=== PATIENT | female | born 1960 | race Caucasian/White ===

== ENCOUNTER 2022-09-08 21:10 | Emergency (ER) | payer OTHER ==
[2022-09-08 21:22] VITALS: BP 171/69
== END 2022-09-08 21:35 | disposition left against medical advice (07) ==
LOC: ED 21:10
DX: Z53.21 Procedure and treatment not carried out due to patient leaving prior to being seen by health care provider (principal)

== ENCOUNTER 2024-05-18 01:01 | Emergency (ER) | payer OTHER ==
[2024-05-18 01:36] LABS: BASOPHILS # (AUTO) 0.1 10^3/uL (0.0-0.1); BASOPHILS % (AUTO) 0.8 %; EOSINOPHILS # (AUTO) 0.3 10^3/uL (0.0-0.7); EOSINOPHILS % (AUTO) 3.4 %; HCT - HEMATOCRIT 40.9 % (37.0-47.0); HGB - HEMOGLOBIN 12.1 g/dL (12.0-16.0); LYMPHOCYTES # (AUTO) 2.9 10^3/uL (1.5-3.5); LYMPHOCYTES % (AUTO) 39.6 %; MEAN CORPUSCULAR HEMOGLOBIN 25.2 pg (27.0-31.0); MEAN CORPUSCULAR HGB CONC 29.6 g/dL (32.0-36.0); MEAN CORPUSCULAR VOLUME 85.2 fL (81.0-99.0); MEAN PLATELET VOLUME 9.9 fL (7.9-10.8); MONOCYTES # (AUTO) 0.6 10^3/uL (0.0-1.0); MONOCYTES % (AUTO) 8.1 %; NEUTROPHILS # (AUTO) 3.5 10^3/uL (1.5-6.6); PLT - PLATELET COUNT 272 10^3/uL (130-450); RED CELL DISTRIBUTION WIDTH 13.2 % (12.0-15.0); WHITE BLOOD COUNT 7.3 x10^3/uL (4.8-10.8)
[2024-05-18 01:50] LABS: ALBUMIN 3.9 g/dL (3.2-5.5); ALBUMIN/GLOBULIN RATIO 1.3 (1.0-2.2); BILIRUBIN,TOTAL 0.3 mg/dL (0.2-1.0); CALCIUM 9.3 mg/dL (8.5-10.3); CREATININE 0.8 mg/dL (0.6-1.3); TOTAL PROTEIN 6.8 g/dL (6.4-8.9)
--- NOTE | 2024-05-18 01:51 | XRAY Report ---
PROCEDURE: Chest 1V INDICATIONS: chest pain TECHNIQUE: One view of the chest was acquired. COMPARISON: None. FINDINGS: Surgical changes and devices: None. Lungs and pleura: Minor left basilar opacity, nonspecific. Otherwise clear lungs. No effusion or pne umothorax. Mediastinum: Mediastinal contours appear normal. Heart size is normal. Bones and chest wall: No suspicious bony lesions. Overlying soft tissues appear unremarkable. IMPRESSION: Very small left lung base opacity may be atelectasis or developing infection. Correlate clinically. Reviewed by: Dalila Acosta MD on 05/18/2024 1:49 AM PDT Approved by: Dalila Acosta MD on 05/18/2024 1:49 AM PDT Station ID: [id number]
--- NOTE | 2024-05-18 02:28 | ED Physician Documentation ---
PD HPI CHEST PAIN - Stated complaint Stated Complaint: CHEST PX/L ARM PX - Chief complaint Chief Complaint: Cardiac - History obtained from History obtained from: Patient - Additional information Additional information: HPI from patient. Patient c/o 2 days of chest pain, midline anterior and described as both tightness and dull, radiates to left shoulder at times but other times radiates to right shoulder. No inciting, exacerbating, nor ameliorating factors. Denies n/v, diaphoresis, leg swelling. Denies h/o similar symptoms. Denies dyspnea. PD PAST MEDICAL HISTORY - Past Medical History Past Medical History: No - Past Surgical History Past Surgical History: No - Present Medications Home Medications: Ambulatory Orders Medication Instructions Recorded Confirmed LORazepam [Ativan] 0.5 - 1 mg PO Q6H PRN #20 tablet 05/18/24 lisinopriL [Lisinopril] 20 mg PO DAILY #30 tablet 05/18/24 - Allergies Allergies/Adverse Reactions: Allergies Allergy/AdvReac Type Severity Reaction Status Date / Time No Known Drug Allergies Allergy Verified 05/18/24 01:22 - Social History Does the pt smoke?: No Smoking Status: Never smoker PD ED PE NORMAL - Vitals Vital signs reviewed: Yes - General General: Alert and oriented X 3, No acute distress, Well developed/nourished - HEENT HEENT: Moist mucous membranes - Cardiac Cardiac: RRR, No murmur, No gallop, No rub - Respiratory Respiratory: No respiratory distress, Clear bilaterally - Abdomen Abdomen: Normal bowel sounds, Soft, Non tender - Derm Derm: Normal color, Warm and dry - Extremities Extremities: Normal ROM s pain, No edema, No calf tenderness / cord Results - Vitals Vitals: Oxygen O2 Source Room air - EKG (time done) No standard instances EKG releavant findings:: EKG personally interpreted by author of this note. Relevant findings are: Rate: Rate (enter#) (58) Rhythm: NSR [place]: Normal Intervals: Normal AR QRS: Normal Ischemia: Normal ST segments Other comments: Other comments (artifact but not to an extent that precludes interpretation) - Labs Labs: Laboratory Tests 05/18/24 05/18/24 05/18/24 01:26 01:26 01:26 WBC 7.3 RBC 4.80 Hgb 12.1 Hct 40.9 MCV 85.2 MCH 25.2 L MCHC 29.6 L RDW 13.2 Plt Count 272 MPV 9.9 Neut # (Auto) 3.5 Lymph # (Auto) 2.9 [place] # (Auto) 0.6 Eos # (Auto) 0.3 Baso # (Auto) 0.1 Absolute Nucleated RBC 0.00 Nucleated RBC % 0.0 Sodium 138 Potassium 4.0 Chloride 105 Carbon Dioxide 26 Anion Gap 7.0 BUN 16 Creatinine 0.8 Estimated GFR (MDRD) 73 L Glucose 104 Calcium 9.3 Total Bilirubin 0.3 AST 15 ALT 21 Alkaline Phosphatase 57 Troponin I High Sens < 2.3 L Total Protein 6.8 Albumin 3.9 Globulin 2.9 Albumin/Globulin Ratio 1.3 Lipase 47 - Rads (name of study) chest xray Relevant Findings:: Prelim report reviewed, See rad report PD Medical Decision Making - ED course Complexity details: reviewed results, re-evaluated patient, considered differential, d/w patient ED course: Normal CBC (except low MCH, MCHC), normal ER abdominal panel (except low GFR (73) although normal BUN, creatinine), normal hs-cTn (<2.3). No concerning findings on EKG. CXR normal with possible exception of "very small left lung base opacity" (per radiology reading) could represent atelectasis or early infectious process. Results d/w patient including CXR; we discussed option of antibiotic to cover possible early pneuomnia, but she and I agree that the finding is quite subtle and she is not having any sign nor symptom to suggest respiratory tract infection and thus mutual decision for no abx at this time was agreed upon. Etiology of her symptoms is not apparent at this time. She is asymptomatic by the time of initial evaluation and remained asymptomatic throughout remainder of ED stay. Results d/w patient, return precautions reviewed, advised to seek follow up with PCP, next available appointment. Departure - Departure Disposition: 01 Home, Self Care Clinical Impression: Chest pain, Hypertension Instructions: ED Chest Pain Atypical Unkn Cause, ED Hypertension New Begin Tx Prescriptions: LORazepam [Ativan] 0.5 - 1 mg PO Q6H PRN #20 tablet PRN Reason: Anxiety lisinopriL [Lisinopril] 20 mg PO DAILY #30 tablet Comments: There were no concerning nor diagnostic findings on tonight's tests, including the EKG, blood tests, and the chest x-ray. The cause of your chest discomfort is not apparent at this time. As we discussed, I strongly recommend that you contact your primary care provider's office when they are open later today to arrange for the next available appointment for follow-up/reevaluation. The purpose of such a follow-up appointment would be consideration of further testing regarding her chest pain, as well as to inquire as to whether or not they recommend that you continue to stay on the lisinopril. I have electronically submitted a one-month prescription for lisinopril (blood pressure medication) to the [facility] pharmacy in [place]. I have also submit bill a prescription for an as-needed short course of lorazepam (anti-anxiety medication). Discharge Date/Time: 05/18/24 03:02
[2024-05-18 03:08] VITALS: BP 150/79; O2SAT 98
== END 2024-05-18 03:02 | disposition home or self-care (01) ==
LOC: ED 01:01
DX: R07.9 Chest pain, unspecified (principal); R03.0 Elevated blood-pressure reading, without diagnosis of hypertension; R91.8 Other nonspecific abnormal finding of lung field
CPT/HCPCS: 36415; 80053; 83690; 84484; 85025; 93005; 99284